=== PATIENT | male | born 1960 | race Caucasian/White ===

== ENCOUNTER 2023-05-17 10:50 | Outpatient (CLI) | payer BC ==
[2023-05-17 15:45] LABS: ALBUMIN 4.4 g/dL (3.2-5.5); ALBUMIN/GLOBULIN RATIO 1.8 (1.0-2.2); BILIRUBIN,TOTAL 1.2 mg/dL (0.2-1.0); CALCIUM 9.6 mg/dL (8.5-10.3); CREATININE 0.8 mg/dL (0.6-1.3); POTASSIUM 4.5 mmol/L (3.5-4.5); TOTAL PROTEIN 6.9 g/dL (6.4-8.9)
[2023-05-17 15:55] LABS: THYROID STIMULATING HORMONE 2.79 uIU/mL (0.34-5.60)
== END 2023-05-17 10:51 | disposition home or self-care (01) ==
LOC: LAB.S 10:50
PROVIDERS: ATTEND Internal Medicine
DX: R94.6 Abnormal results of thyroid function studies (principal); I49.9 Cardiac arrhythmia, unspecified
CPT/HCPCS: 36415; 80053; 84439; 84443; 84481

== ENCOUNTER 2024-02-21 14:45 | Emergency (ER) | payer BC ==
--- NOTE | 2024-02-21 15:18 | ED Physician Documentation ---
History of Present Illness - Stated complaint Stated Complaint: HEART RACING - Chief complaint Chief Complaint: Cardiac - History obtained from History obtained from: Patient - History of Present Illness Timing: How many days ago (2) Pain level max: 0 Pain level now: 0 - Additonal information Additional information: 63-year-old male presents to the emergency department with palpitations ongoing for several years, he states that he has had a heart monitor in the past which did not show any evidence of arrhythmias. He states that he did not feel the palpitations however when he was wearing the heart monitor. He states that for the past 2 to 3 days he has felt his heart intermittently racing, his max heart rate was approximately 140 to 150 bpm. Does not have any other cardiac history. No history of stents or bypasses. No chest pain. No shortness of breath. Nothing makes it better or worse. No calf pain or leg pain. Review of Systems Constitutional: denies: Fever, Chills Ears: denies: Ear pain Nose: denies: Rhinorrhea / runny nose, Congestion Respiratory: denies: Cough GI: denies: Vomiting, Diarrhea Skin: denies: Rash Musculoskeletal: denies: Neck pain, Back pain Neurologic: denies: Headache PD PAST MEDICAL HISTORY - Past Medical History Past Medical History: No - Past Surgical History Past Surgical History: No - Present Medications Home Medications: Ambulatory Orders Medication Instructions Recorded Confirmed Aspirin [Aspirin EC] 81 mg PO DAILY #30 tab 02/21/24 dilTIAZem HCL [Cardizem] 30 mg PO Q6H PRN #30 tab 02/21/24 - Allergies Allergies/Adverse Reactions: Allergies Allergy/AdvReac Type Severity Reaction Status Date / Time No Known Drug Allergies Allergy Verified 02/21/24 15:15 - Social History Does the pt smoke?: No Smoking Status: Never smoker Does the pt drink ETOH?: Yes ETOH Use: Wine Does the pt have substance abuse?: No PD ED PE NORMAL - Vitals Vital signs reviewed: Yes - General General: Alert and oriented X 3, No acute distress - HEENT HEENT: PERRL, Moist mucous membranes - Neck Neck: Supple, no meningeal sign - Cardiac Cardiac: Other (Irregularly irregular) - Respiratory Respiratory: No respiratory distress, Clear bilaterally - Abdomen Abdomen: Soft, Non tender, Non distended - Derm Derm: Warm and dry - Extremities Extremities: No edema, No calf tenderness / cord - Neuro Neuro: Alert and oriented X 3 - Psych Psych: Normal mood, Normal affect Results - Vitals Vitals: Vital Signs - 24 hr 02/21/24 15:11 Temperature 36.9 C Heart Rate 99 Respiratory 18 Rate Blood Pressure 105/74 O2 Saturation 98 Oxygen O2 Source Room air - EKG (time done) 1457 EKG releavant findings:: EKG personally interpreted by author of this note. Relevant findings are: Rate: Rate (enter#) (90) Rhythm: Atrial fibrillation [place]: Normal QRS: Normal Ischemia: Normal ST segments - Labs Labs: Laboratory Tests 02/21/24 02/21/24 15:20 15:20 WBC 10.1 RBC 5.36 Hgb 17.0 Hct 47.8 MCV 89.2 MCH 31.7 H MCHC 35.6 RDW 11.8 L Plt Count 253 MPV 10.3 Neut # (Auto) 6.5 Lymph # (Auto) 1.8 [place] # (Auto) 1.0 Eos # (Auto) 0.7 Baso # (Auto) 0.1 Absolute Nucleated RBC 0.00 Nucleated RBC % 0.0 Sodium 139 Potassium 4.0 Chloride 106 Carbon Dioxide 27 Anion Gap 6.0 BUN 22 H Creatinine 1.0 Estimated GFR (MDRD) 76 L Glucose 107 H Calcium 9.3 Total Bilirubin 0.8 AST 17 ALT 13 Alkaline Phosphatase 68 Troponin I High Sens 12.8 Total Protein 6.0 L Albumin 4.1 Globulin 1.9 L Albumin/Globulin Ratio 2.2 Lipase 16 TSH 2.15 Free T4 Direct 0.86 - Rads (name of study) cxr Relevant Findings:: Final report received, See rad report PD Medical Decision Making - ED course Complexity details: reviewed results, re-evaluated patient, considered differential, d/w patient ED course: No acute findings on laboratory testing. No significant abnormalities on chest x-ray. He is found to be in atrial fibrillation with rapid ventricular response. Given a single dose of diltiazem, became rate controlled. Appears to have paroxysmal atrial fibrillation that has been going on for years. Recommend that he follow-up with his PCP for further care. Will prescribe as needed diltiazem for now. His Charlie Vasc score is 0. Therefore we will start him on aspirin only. Troponin is negative. Thyroid studies are normal. Patient does drink wine. Recommend echocardiogram as an outpatient. Patient counseled regarding signs and symptoms for which I believe and urgent re-evaluation would be necessary. Patient with good understanding of and agreement to plan and is comfortable going home at this time This document was made in part using voice recognition software. While efforts are made to proofread this document, sound alike and grammatical errors may occur. Departure - Departure Disposition: 01 Home, Self Care Clinical Impression: Atrial fibrillation Qualifiers: Atrial fibrillation type: paroxysmal Qualified Code(s): I48.0 - Paroxysmal atrial fibrillation Condition: Good Instructions: ED Afib Follow-Up: Celine Sheppard MD [Provider Admit Priv/Credential] - Within 1 week Prescriptions: Aspirin [Aspirin EC] 81 mg PO DAILY #30 tab dilTIAZem HCL [Cardizem] 30 mg PO Q6H PRN #30 tab PRN Reason: tachycardia Comments: Your prescriptions were sent to [facility] in [place]. As we discussed you have atrial fibrillation. This is likely a condition that comes and goes for you. We do recommend that he start on a baby aspirin daily and this was prescribed for you. Please follow-up with your doctor for further care including an echocardiogram and referral to cardiology. As we discussed you can use the Cardizem as needed for any heart racing. Forms: PCP List Discharge Date/Time: 02/21/24 16:31
[2024-02-21 15:22] VITALS: BP 105/74; O2SAT 98
[2024-02-21] MEDS: diltiaZEM INJ 5 MG/ML VIAL IVP STA (15:26)
[2024-02-21 15:33] LABS: BASOPHILS # (AUTO) 0.1 10^3/uL (0.0-0.1); BASOPHILS % (AUTO) 0.6 %; EOSINOPHILS # (AUTO) 0.7 10^3/uL (0.0-0.7); EOSINOPHILS % (AUTO) 7.3 %; HCT - HEMATOCRIT 47.8 % (42.0-52.0); LYMPHOCYTES # (AUTO) 1.8 10^3/uL (1.5-3.5); LYMPHOCYTES % (AUTO) 17.5 %; MEAN CORPUSCULAR HEMOGLOBIN 31.7 pg (27.0-31.0); MEAN CORPUSCULAR HGB CONC 35.6 g/dL (32.0-36.0); MEAN CORPUSCULAR VOLUME 89.2 fL (80.0-94.0); MEAN PLATELET VOLUME 10.3 fL (7.4-11.4); MONOCYTES % (AUTO) 10.2 %; NEUTROPHILS # (AUTO) 6.5 10^3/uL (1.5-6.6); NEUTROPHILS % (AUTO) 64.1 %; PLT - PLATELET COUNT 253 10^3/uL (130-450); RED BLOOD COUNT 5.36 10^6/uL (4.70-6.10); RED CELL DISTRIBUTION WIDTH 11.8 % (12.0-15.0); WHITE BLOOD COUNT 10.1 x10^3/uL (4.8-10.8)
--- NOTE | 2024-02-21 15:37 | XRAY Report ---
PROCEDURE: Chest 1V INDICATIONS: palpitations TECHNIQUE: One view of the chest was acquired. COMPARISON: None. FINDINGS: Surgical changes and devices: None. Lungs and pleura: No pleural effusions or pneumothorax. Lungs are clear. Mediastinum: Mediastinal contours appear normal. Heart size is normal. Bones and chest wall: No suspicious bony lesions. Overlying soft tissues appear unremarkable. IMPRESSION: No acute cardiopulmonary process. Reviewed by: Ben Mcfarlane MD on 02/21/2024 3:36 PM PDT Approved by: Ben Mcfarlane MD on 02/21/2024 3:36 PM PDT Station ID: [id number]
[2024-02-21 15:47] LABS: ALBUMIN 4.1 g/dL (3.2-5.5); ALBUMIN/GLOBULIN RATIO 2.2 (1.0-2.2); BILIRUBIN,TOTAL 0.8 mg/dL (0.2-1.0); CALCIUM 9.3 mg/dL (8.5-10.3)
[2024-02-21 15:54] LABS: TROPONIN I HIGH SENSITIVITY 12.8 ng/L (2.3-19.7)
[2024-02-21 16:05] LABS: THYROID STIMULATING HORMONE 2.15 uIU/mL (0.34-5.60)
== END 2024-02-21 16:31 | disposition home or self-care (01) ==
LOC: ED 14:45
DX: I48.0 Paroxysmal atrial fibrillation (principal); Z79.82 Long term (current) use of aspirin
CPT/HCPCS: 36415; 80053; 83690; 84439; 84443; 84484; 85025; 93005; 96374; 99284